=== PATIENT | male | born 1980 | race Caucasian/White ===

== ENCOUNTER 2016-04-29 21:45 | Emergency (ER) | payer MEDICAID ==
[2016-04-30] MEDS ORDERED: HYDROCODONE/ACETAMINOPHEN 5/325MG TABLET ONE (01:00)
[2016-04-30] MEDS ORDERED: CEPHALEXIN 500 MG CAPSULE ONE (01:00)
[2016-04-30] MEDS ORDERED: DIPHTH,PERTUSS(ACELL),TET VAC 0.5 ML VIAL IM V ONE (01:04)
--- NOTE | 2016-04-30 08:48 | RAD ---
Exam: Three-view left finger COMPARISON: None INDICATION: Drill bit to left finger. FINDINGS: PA, lateral and oblique views of the left second finger were obtained. Mild soft tissue swelling is seen at the PIP joint. No radiopaque foreign body is identified. Alignment is maintained. No fracture is identified. IMPRESSION: No acute osseous abnormality within the left index finger.
== END 2016-04-30 01:23 | disposition home or self-care (01) ==
LOC: ED 21:45
DX: S61.231A Puncture wound without foreign body of left index finger without damage to nail, initial encounter (principal); Z23 Encounter for immunization; W29.8XXA Contact with other powered hand tools and household machinery, initial encounter; Y92.009 Unspecified place in unspecified non-institutional (private) residence as the place of occurrence of the external cause
CPT/HCPCS: 90715; 73140; 90471; 99283 ×2; A9270 ×2